=== PATIENT | female | born 1995 | race Caucasian/White ===

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

== ENCOUNTER 2018-04-16 20:54 | Emergency (ER) | payer BC ==
[2018-04-16 21:21] VITALS: BP 130/82
--- NOTE | 2018-04-16 21:45 | UC ---
Complaint Female HPI - HPI Summary HPI Summary: 22 y/o female presents to the urgent care c/o frequency and burning on urination for the past week. Pt states lower back pain that started to radiate to her Rt kidney this morning. Pt states pain w/ urination is 4/10. She has not taking anything to alleviate symptoms. She has been drinking fluids, however she has decrease appetite and mild nausea. Pt denies fever, SOB, chest pain, abdominal pain, V/D, vaginal discharge, Hx of STD's. LMP: 03/31/2018. - History Of Current Complaint Chief Complaint: UCGU Stated Complaint: ABDOMINAL COMPLAINT Time Seen by Provider: 04/16/18 21:34 Hx Obtained From: Patient Hx Last Menstrual Period: 04/05/18 ?: No Onset/Duration: Gradual Onset, Lasting Weeks - 1 week, Still Present, Worse Since - today Timing: Intermittent Severity Initially: Mild Severity Currently: Moderate Pain Intensity: 6 Pain Scale Used: 0-10 Numeric Character: Burning Aggravating Factor(s): Urination Associated Signs And Symptoms: Positive: Back Pain. Negative: Fever, Vaginal Bleeding/Discharge - Risk Factors Ectopic Risk Factor: Negative Ovarian Torsion Risk Factor: Negative - Allergies/Home Medications Allergies/Adverse Reactions: Allergies Allergy/AdvReac Type Severity Reaction Status Date / Time No Known Allergies Allergy Verified 04/16/18 21:21 Home Medications: Home Medications Lisdexamfetamine Dimesylate [Vyvanse] 50 mg PO DAILY WITH MEAL 04/16/18 [ History Confirmed 04/16/18] PMH/Surg Hx/FS Hx/Imm Hx Previously Healthy: Yes - Pt denies PMHX - Surgical History Surgical History: Yes Surgery Procedure, Year, and Place: tONSILS - Family History Known Family History: Positive: Unknown - level 5, patient is too intoxicated to logically respond - Social History Occupation: Student Lives: With Family Alcohol Use: Occasionally Substance Use Type: None Substance Use Comment - Amount & Last Used: denies Smoking Status (MU): Never Smoked Tobacco Review of Systems Constitutional: Negative Skin: Negative Eyes: Negative ENT: Negative Respiratory: Negative Cardiovascular: Negative Gastrointestinal: Nausea Genitourinary: Dysuria, Frequency, Urgency Motor: Negative Neurovascular: Negative Musculoskeletal: Other: - lower back pain Neurological: Negative Psychological: Negative Is Patient Immunocompromised?: No All Other Systems Reviewed And Are Negative: Yes Physical Exam - Summary Physical Exam Summary: VITAL SIGNS: Reviewed. GENERAL: Patient is a well developed and nourished female who is sitting comfortable in the examining table. Patient is not in any acute respiratory distress. HEAD AND FACE: No signs of trauma. No ecchymosis, hematomas or skull depressions. No sinus tenderness. EYES: PERRLA, EOMI x 2, No injected conjunctiva, clear watery eyes, no nystagmus. No photophobia. EARS: Hearing grossly intact. Ear canals and tympanic membranes are within normal limits. MOUTH: pharynx with no erythema, no exudates,no palatal petechiae. no B/L tonsillar enlargement Uvula in midline. NECK: Supple, trachea is midline, no lymphadenopathy, no JVD, no carotid bruit, no c-spine tenderness, neck with full ROM. CHEST: Symmetric, no tenderness at palpation LUNGS: Clear to auscultation bilaterally. No wheezing or crackles. CVS: Regular rate and rhythm, S1 and S2 present, no murmurs or gallops appreciated. ABDOMEN: Soft, non-tender. No signs of distention. No rebound no guarding, and no masses palpated. Bowel sounds are normal. BACK:no scoliosis or lesions, non tender to palpation, Positive mild RT CVA tenderness, negative LF CVA tenderness EXTREMITIES: FROM in all major joints, no edema, no cyanosis or clubbing. NEURO: Alert and oriented x 3. No acute neurological deficits. Speech is normal and follows commands. SKIN: Dry and warm Triage Information Reviewed: Yes Vital Signs: Initial Vital Signs Temp 99.2 F 04/16/18 21:15 Pulse 102 04/16/18 21:15 Resp 18 04/16/18 21:15 BP 130/82 04/16/18 21:15 Pulse Ox 100 04/16/18 21:15 Complaint Female Dx - Course Course Of Treatment: 22 y/o female presents to the urgent care c/o frequency and burning on urination for the past week. Pt states lower back pain that started to radiate to her Rt kidney this morning. Pt states pain w/ urination is 4/10. She has not taking anything to alleviate symptoms. She has been drinking fluids, however she has decrease appetite and mild nausea. Pt denies fever, SOB, chest pain, abdominal pain, V/D, vaginal discharge, Hx of STD's. LMP : 03/31/2018.Hx obtained. PE: WNL except pain w/ positive mild RT CVA tenderness on examination. UA: UA results: Blood 2+, Leukoesterase 3+. test: negative. Pt declines vaginal discharge. Pt is hemodynamically stable and I will Tx her as uncomplicated Pyelonephritis. Pt given at the clinic Rocephin 1g IM. Pt tolerated well IM inj and also given Pyridium PO for dysuria. Pt Rx ciporfloxacin PO x 7 days. Pyridium 100mg PO TID x 2 days. Advised to increase fluid intake. Urine sent for culture if any abnormality Pt will be notified for further treatment. Pt strongly advised if she devleops fever and sever flank pain despite taking ABX to go immediately to the ER for further management. also advised to return to urgent care or her PCP if not improvment of symptoms. d/c instructions explained. Pt understood and agreed. Left the clinic ambulating and hemodynamically stable. - Differential Dx/Diagnosis Differential Diagnosis/HQI/PQRI: Cervicitis, Pelvic Inflammatory Disease, , Renal Colic, Ureteral Stone, Urinary Tract Infection, Other - Pyleonephritis Provider Diagnoses: 1- Acute Pyelonephritis. 2-Dysuria Discharge - Sign-Out/Discharge Documenting (check all that apply): Patient Departure - D/c home All imaging exams completed and their final reports reviewed: No Studies - Discharge Plan Condition: Stable Disposition: HOME Prescriptions: Ciprofloxacin TAB* [Cipro 500 MG TAB*] 500 mg PO BID #14 tab Phenazopyridine TAB* [Pyridium 100 mg TAB*] 100 mg PO TID #5 tab Patient Education Materials: Kidney Infection (ED) Forms: *School Release Referrals: [facility] [place] [facility] [Outside] - 2 Days Additional Instructions: 1- Please take Ciprofloxacin PO x 7 days. Pyridium 100 mg PO TID x 2 days to alleviate urinary symptoms. Increase increase fluid intake. drink cranberry juice. 2-Urine sent for culture if any abnormality, you will be notified for further treatment. 3- If you develop fever and sever flank pain despite taking antibiotic please go immediately to the ER for further management. Otherwise f/u w/ your PCP in 3 days if not improvement of symptoms - Billing Disposition and Condition Condition: STABLE Disposition: Home
[2018-04-16] MEDS ORDERED: Lidocaine 1%* 5 ML VIAL INJ ONE (21:59)
[2018-04-16] MEDS ORDERED: cefTRIAXone VIAL(*) 1,000 MG VIAL IM ONE (22:00)
[2018-04-16] MEDS ORDERED: Phenazopyridine TAB* 100 MG PO ONE (22:01)
== END 2018-04-16 22:14 | disposition home or self-care (01) ==
LOC: UCEAST 20:54
DX: N10 Acute pyelonephritis (principal); R30.0 Dysuria
CPT/HCPCS: 81003; 84702; 87086; 99212; A9270-GY; G0463; J0696